=== PATIENT | female | born 1990 | race Hispanic/Latino ===

== ENCOUNTER 2016-07-25 13:37 | Emergency (ER) | payer BC ==
[2016-07-25 13:43] VITALS: BMI 19.9
--- NOTE | 2016-07-25 14:18 | ED PDOC ---
Arrival/HPI - General Chief Complaint: Chest Pain Time Seen by Provider: 07/25/16 13:38 Historian: Patient - History of Present Illness Narrative History of Present Illness (Text): 07/25/16 14:24 A 25 year old female presents to the emergency department complaining of chest pain that developed about two hours ago while she was eating. She started getting shaky, then she ate and she got the pain. Patient reports pain felt like discomfort to pressure, and currently rates pain as a 3 on a scale of 10. She also notes worsening pain with heavy breathes. Patient reports she is an occasional drinker but denies any drug use. Patient notes feeling lightheaded, but denies any cough, fever, leg pain, edema or any other complaints at this time. Patient's LMP was July 02. PMD: Dr. Archer Time/Duration: 1-3 hours Symptom Onset: Sudden Symptom Course: Unchanged, Improving Activities at Onset: Rest Context: Home Associated Symptoms (Text): lightheaded and nausea Past Medical History - Provider Review Nursing Documentation Reviewed: Yes - Psychiatric Hx Substance Use: No - Anesthesia Hx Anesthesia: No Family/Social History - Physician Review Nursing Documentation Reviewed: Yes Family/Social History: No Known Family HX Smoking Status: Never Smoked Hx Alcohol Use: No Hx Substance Use: No Allergies/Home Meds Allergies/Adverse Reactions: Allergies No Known Allergies Allergy (Verified 07/25/16 13:43) Home Medications: Home Meds Medication Instructions Recorded Confirmed Ethinyl Estradiol/Drospirenone 1 tab PO DAILY 07/25/16 07/25/16 [Shantal 3 mg-0.02 mg] Review of Systems - Physician Review All systems were reviewed & negative as marked: Yes - Review of Systems Constitutional: absent: Fevers Eyes: Normal ENT: Normal Respiratory: absent: Cough Cardiovascular: Chest Pain Gastrointestinal: Nausea Genitourinary Female: Normal Musculoskeletal: Normal Skin: Normal Neurological: Normal, Other (lightheaded) Endocrine: Normal Hemo/Lymphatic: Normal Psychiatric: Normal Physical Exam Vital Signs Reviewed: Yes Vital Signs Temp Pulse Resp BP Pulse Ox 07/25/16 17:22 92 H 20 148/95 H 100 07/25/16 14:30 104 H 20 141/91 H 98 07/25/16 13:37 98.6 F 109 H 18 154/101 H 97 Temperature: Afebrile Blood Pressure: Hypertensive Pulse: Tachycardic Respiratory Rate: Normal Appearance: Positive for: Well-Appearing, Non-Toxic, Comfortable Pain Distress: None Mental Status: Positive for: Alert and Oriented X 3 - Systems Exam Head: Present: Atraumatic, Normocephalic Pupils: Present: PERRL Extroacular Muscles: Present: EOMI Conjunctiva: Present: Normal Mouth: Present: Moist Mucous Membranes Neck: Present: Normal Range of Motion Respiratory/Chest: Present: Clear to Auscultation, Good Air Exchange. No: Respiratory Distress, Accessory Muscle Use Cardiovascular: Present: Tachycardic Abdomen: Present: Normal Bowel Sounds. No: Tenderness, Distention, Peritoneal Signs Back: Present: Normal Inspection Upper Extremity: Present: Normal Inspection. No: Cyanosis, Edema Lower Extremity: Present: Normal Inspection. No: Edema Neurological: Present: GCS=15, CN II-XII Intact, Speech Normal Skin: Present: Warm, Dry, Normal Color. No: Rashes Psychiatric: Present: Alert, Oriented x 3, Normal Insight, Normal Concentration Medical Decision Making ED Course and Treatment: 07/25/16 14:15 Impression: A 25 year old female with chest pain and lightheadedness. Differential Diagnosis included but are not limited to: Hypertension; Chest Pain consider ACS vs GERD vs Anxiety vs. Pulmonary embolism Plan: -- EKG -- chest xray -- Urinalysis -- labs -- Nasal Cannula -- POC urine preg test -- Reassess and disposition Progress Notes: EKG: Ordered, reviewed, and independently interpreted the EKG. Rate : 110 BPM Rhythm : Sinus tachycardia Interpretation : T wave inversions, inferior leads Comparison : No previous EKG for comparison. Chest X-ray: No active disease. 07/25/16 17:44 Labs were reviewed. CXR negative. Since patient is on OCP, CXR negative and patient is tachycardic with symptoms I tamayo till consider a PE as a diagnosis so a CT was obtained. Patient's CT negative for PE. She feels better and is no longer having pain. She says she may just feel anxious because she gets similar symptoms like this when she gets anxious. She will be given a prescription for Pepcid. Her PMD is Dr. Shamir Archer who states he can see her tomorrow in his office. I have reviewed her discharge instructions with her and her parents. She was advised to return to the ED if symptoms or any concerns. She does not want any anxiety medications at this time because she already feels better. 07/25/16 17:48 - Lab Interpretations Lab Results: 07/25/16 14:20 07/25/16 14:20 Lab Results 07/25/16 14:35: Urine Color Straw, Urine Appearance Clear, Urine pH 7.0, Ur Specific [place] 1.010, Urine Protein Negative, Urine Glucose (UA) Negative, Urine Ketones Negative, Urine Blood Trace-lysed H, Urine Nitrate Negative, Urine Bilirubin Negative, Urine Urobilinogen 0.2, Ur Leukocyte Esterase Negative , Urine RBC 0 - 2, Urine WBC 0 - 2, Ur Epithelial Cells 0 - 2, Urine Bacteria Few 07/25/16 14:20: Sodium 140, Potassium 3.5 L, Chloride 100, Carbon Dioxide 28, Anion Gap 16, BUN 12, Creatinine 0.8, Est GFR ( Amer) > 60, Est GFR (Non- Af Amer) > 60, Random Glucose 126 H, Calcium 9.4, Magnesium 2.0, Total Bilirubin 0.6, AST 22, ALT 25, Alkaline Phosphatase 48, Lactate Dehydrogenase 389, Total Creatine Kinase 41, Troponin I < 0.01, Total Protein 7.7, Albumin 4.4 , Globulin 3.4, Albumin/Globulin Ratio 1.3 07/25/16 14:20: PT 10.7, INR 0.99, APTT 27.4, D-Dimer, Quantitative 0.19 07/25/16 14:20: WBC 12.4 H, RBC 4.98, Hgb 14.1, Hct 41.4, MCV 83.1, MCH 28.3, MCHC 34.1, RDW 12.9, Plt Count 281, MPV 10.8, Gran % 77.3 H, Lymph % (Auto) 16.7 L, [place] % (Auto) 5.2, Eos % (Auto) 0.6 L, Baso % (Auto) 0.2, Gran # 9.61 H , Lymph # 2.1, [place] # 0.7 H, Eos # 0.1, Baso # 0.02 I have reviewed the lab results: Yes - RAD Interpretation Radiology Orders: 07/25/16 ANGIO CHEST PE PROTOCOL [CT] Stat 07/25/16 13:54 CHEST PORTABLE [RAD] Stat - EKG Interpretation Interpreted by ED Physician: Yes Type: 12 lead EKG - Medication Orders Current Medication Orders: Discontinued Medications Iodixanol (Visipaque 320 Mg/Ml 100 Ml) Confirm Administered Dose 100 ml IV .STK- MED ONE Stop: 07/25/16 16:55 Potassium Chloride (K-Dur 20 Meq Er Tab) 40 meq PO STAT STA Stop: 07/25/16 15:15 Last Admin: 07/25/16 15:32 Dose: 40 meq YESSENIA Risk Score for UA/NSTEMI - YESSENIA Risk Score Age > 64: NO 3 or more CAD Risk Factors: NO Known CAD (Stenosis greater than 50%): NO Aspirin use in past 7 days: NO Severe Angina: NO EKG ST changes greater than 0.5mm: NO Positive Cardiac Marker: NO YESSENIA Score: 0 % risk at 14 days of: all cause mortality, new or recurrent TX, or severe recurrent ischemia requiring urgen revascularization: 5% Wells Criteria for PE - Wells Criteria for Pulmonary Embolism Clinical Signs and Symptoms of DVT: No P.E is #1 Diagnosis, or Equally Likely: Yes Heart Rate >100: Yes Immobilization at least 3 days;Surgery previous 4 weeks: No Previous, objectively diagnosed PE or DVT: No Hemoptysis: No Malignancy w/treatment within 6 months, or palliative: No Total Score: 2.5 - Scribe Statement The provider has reviewed the documentation as recorded by the Dmitriyibalisa Cartwright All medical record entries made by the Dmitriyibalisa were at my direction and personally dictated by me. I have reviewed the chart and agree that the record accurately reflects my personal performance of the history, physical exam, medical decision making, and the department course for this patient. I have also personally directed, reviewed, and agree with the discharge instructions and disposition. Disposition/Present on Arrival - Present on Arrival Any Indicators Present on Arrival: No History of DVT/PE: No History of Uncontrolled Diabetes: No Urinary Catheter: No History of Decub. Ulcer: No History Surgical Site Infection Following: None - Disposition Have Diagnosis and Disposition been Completed?: Yes Diagnosis: Chest pain, Hypertension Disposition: HOME/ ROUTINE Disposition Time: 17:49 Patient Plan: Discharge Patient Problems: Current Active Problems Problem Status Onset Chest pain Acute Hypertension Acute Condition: IMPROVED Discharge Instructions (ExitCare): Chest Pain (ED), Dyspnea (ED), Anxiety (ED) , Gastritis (ED), Hypertension (ED) Additional Instructions: Ms White, thank you for letting us take care of you today. Your provider was Dr. Daley. You were treated for Chest Pain, Shortness of Breathe. The emergency medical care you received today was directed at your acute symptoms. If you were prescribed any medication, please fill it and take as directed. It may take several days for your symptoms to resolve. Return to the Emergency Department if your symptoms worsen, do not improve, or if you have any other problems. Please contact your doctor or call one of the physicians/clinics you have been referred to that are listed on the Patient Visit Information form that is included in your discharge packet. Bring any paperwork you were given at discharge with you along with any medications you are taking to your follow up visit. Our treatment cannot replace ongoing medical care by a primary care provider (PCP) outside of the emergency department. Make sure to follow up with Dr. Abhilash Archer tomorrow. He will be expecting you. Thank you for allowing the [facility] team to be part of your care today. If you had an X-Ray or CT scan: A Radiologist will review the ED reading if any change in treatment is needed we will contact you. If you had a blood, urine, or wound culture: It will take several days for the results, if any change in treatment is needed we will contact you. If you had an STI test: It will take 48 hours for the results. Please call after 1 week if you have not heard back. Prescriptions: Ranitidine HCl [Zantac] 150 mg PO BID PRN #30 tablet PRN Reason: Pain, Mild (1-3) Referrals: Suzi PINEDA,Shamir Trivedi MD [Family Provider] - Follow up with primary Forms: [facility] Discharge ([place]), WORK NOTE
[2016-07-25 14:36] LABS: ADD MANUAL DIFF? NO
[2016-07-25 14:53] LABS: URINE BILIRUBIN NEGATIVE (NEGATIVE); URINE BLOOD TRACE-LYSED (NEGATIVE); URINE GLUCOSE (UA) NEGATIVE (NEGATIVE); URINE KETONE NEGATIVE (NEGATIVE); URINE LEUKOCYTE ESTERASE NEGATIVE Leu/uL (NEGATIVE); URINE PROTEIN NEGATIVE mg/dL (<30 mg/dL); URINE UROBILINOGEN 0.2 E.U./dL (<1 E.U./dL)
[2016-07-25 14:55] LABS: BASO # 0.02 [, K/mm3] (0.0-2.0); BASO % 0.2 % (0.0-3.0); EOS # 0.1 (0.0-0.7); EOS % 0.6 % (1.5-5.0); GRAN # 9.61 (1.4-6.5); GRAN % 77.3 % (50.0-68.0); HEMATOCRIT 41.4 % (36.0-48.0); LYMPH # 2.1 (1.2-3.4); LYMPH % 16.7 % (22.0-35.0); MEAN CELL VOLUME 83.1 fL (80.0-105.0); MEAN CORPUSCULAR HEMOGLOBIN 28.3 pg (25.0-35.0); MEAN CORPUSCULAR HGB CONC 34.1 g/dl (31.0-37.0); MEAN PLATELET VOLUME 10.8 fl (7.0-11.0); MONO # 0.7 (0.1-0.6); MONO % 5.2 % (1.0-6.0); PLATELET COUNT 281 [, 10^3/uL] (120.0-450.0); RED CELL DISTRIBUTION WIDTH 12.9 % (11.5-14.5); WHITE BLOOD COUNT 12.4 [, 10^3/ul] (4.5-11.0)
[2016-07-25 14:55] LABS: URINE APPEARANCE CLEAR (CLEAR); URINE COLOR STRAW (YELLOW)
[2016-07-25 14:59] LABS: ALB/GLOB RATIO 1.3 (1.1-1.8); ALKALINE PHOSPHATASE 48 U/L (38-133); ALT/SGPT 25 U/L (7-56); AST/SGOT 22 U/L (15-39); BILIRUBIN,TOTAL 0.6 mg/dL (0.2-1.3); BLOOD UREA NITROGEN 12 mg/dL (7-21); CALCIUM 9.4 mg/dL (8.4-10.5); CARBON DIOXIDE 28 mmol/L (21-33); CHLORIDE 100 mmol/L (98-107); GFR AFRICAN-AMERICAN > 60; GLUCOSE,RANDOM 126 mg/dL (70-110); INR 0.99 (0.93-1.08); PARTIAL THROMBOPLASTIN TIME 27.4 Seconds (23.7-30.8); POTASSIUM 3.5 mmol/L (3.6-5.0); SODIUM 140 mmol/L (132-148); TOTAL PROTEIN 7.7 g/dL (5.8-8.3)
[2016-07-25 15:02] LABS: D DIMER 0.19 mg/L FEU (0-0.50)
[2016-07-25 15:10] LABS: URINE BACTERIA FEW (NEG); URINE EPITHELIAL CELLS 0 - 2 /hpf (0-5); URINE RBC 0 - 2 /hpf (0-2); URINE WBC 0 - 2 /hpf (0-6)
[2016-07-25 15:12] LABS: TROPONIN I < 0.01 ng/mL
[2016-07-25] MEDS ORDERED: Potassium Chloride 20 mEq ER Tab PO STA (15:14)
[2016-07-25 15:18] VITALS: TEMP 98.6
--- NOTE | 2016-07-25 15:41 | RAD ---
HISTORY: chest pain COMPARISON: No prior. FINDINGS: LUNGS: No active pulmonary disease. PLEURA: No significant pleural effusion identified, no pneumothorax apparent. CARDIOVASCULAR: Normal. OSSEOUS STRUCTURES: No significant abnormalities. VISUALIZED UPPER ABDOMEN: Normal. OTHER FINDINGS: None. IMPRESSION: No active disease.
[2016-07-25 16:17] VITALS: RESP 20
[2016-07-25] MEDS ORDERED: Iodixanol 320 MG/ML 100 ML BOTTLE IV ONE (16:54)
[2016-07-25 17:23] VITALS: BP 148/95; PULSE 92; O2SAT 100
--- NOTE | 2016-07-25 17:25 | CT ---
CT chest with IV contrast Indication: chest pain and sob r/o PE Technique: Contiguous axial images were obtained through the chest with intravenous contrast enhancement. Sagittal and coronal reconstructions were generated and reviewed. This CT exam was performed using 1 or more of the falling dose reduction techniques: Automated exposure control, adjustment of the MAA and/or kV according to patient size, and/or use of iterative reconstruction technique. IV Contrast: 100 cc Visipaque 320 Radiation dose (DLP): 187.80 MGy-cm. Comparison: Chest x-ray performed 07/25/16 Findings: Visualized portions of the inferior thyroid gland appear unremarkable. The mediastinal and hilar vascular structures appear within normal limits. The heart appears within normal limits of size. No large central or segmental pulmonary embolus evident. No focal consolidation. No pleural effusion. No pneumothorax. No suspicious pulmonary nodules measuring greater than 5 mm. Limited visualization of the upper abdomen appears grossly unremarkable. No acute osseous abnormality is detected. Impression: No large central or segmental pulmonary embolus identified.
--- NOTE | 2016-07-26 07:59 | CARD ---
APPROVED REPORT EKG Measurement Heart [id number] <Conclusion> Sinus tachycardia NSSTW changes
== END 2016-07-25 18:03 | disposition home or self-care (01) ==
LOC: ED 13:37
DX: R07.9 Chest pain, unspecified (principal); I10 Essential (primary) hypertension
CPT/HCPCS: 71010; 71275; 80053; 81001; 82550; 83615; 83735; 84484; 85025; 85378; 85610; 85730; 93005; 99285; Q9967